=== PATIENT | male | born 1985 | race American Indian/Alaskan Native ===

== ENCOUNTER 2017-12-10 10:26 | Emergency (ER) | payer OTHER ==
[2017-12-10] MEDS ORDERED: BOOSTRIX IM ONE (12:01)
[2017-12-10] MEDS ORDERED: ZOFRAN IM ONE (12:01)
[2017-12-10] MEDS ORDERED: LIDOCAINE VISCOUS 2% PO ONE ×2 (12:03→12:05)
[2017-12-10] MEDS ORDERED: MORPHINE IM ONE (12:03)
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
[2017-12-10] MEDS ORDERED: NACL 0.9% 1,000 ML IR ONE (12:28)
[2017-12-10] MEDS ORDERED: ANTIBIOTIC OINT TP PRN (12:54)
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
[2017-12-10] MEDS ORDERED: POLYSPORIN TP ONE (13:10)
[2017-12-10 13:55] VITALS: BP 126/72
== END 2017-12-10 13:53 | disposition home or self-care (01) ==
LOC: ED 10:26
DX: S50.312A Abrasion of left elbow, initial encounter (principal); V29.9XXA Motorcycle rider (driver) (passenger) injured in unspecified traffic accident, initial encounter; Y93.89 Activity, other specified; Y99.8 Other external cause status; Y92.488 Other paved roadways as the place of occurrence of the external cause
CPT/HCPCS: 73080; 90471; 90715; 96372; 99283; J2270; J2405